=== PATIENT | male | born 1985 | race Caucasian/White ===

== ENCOUNTER 2019-04-17 22:51 | Emergency (ER) | payer OTHER ==
[~2019-04-17] VITALS: Ht 172.7 cm; Wt 74.8 kg
[2019-04-18 00:54] LABS: ABSOLUTE NEUTROPHILS 5.4 thou/uL (1.4-8.2); BASOPHILS 0.9 % (0.0-2.0); EOSINOPHILS 2.3 % (0.0-3.0); HEMATOCRIT 45.1 % (42.0-52.0); HEMOGLOBIN 15.1 gm/dL (14.0-18.0); LYMPHOCYTES 23.4 % (24.0-44.0); MCH 29.7 pg (26.0-34.0); MCHC 33.6 g/dL (28.0-37.0); MCV 88.5 fL (80.0-100.0); MONOCYTES 7.9 % (1.0-8.0); PLATELET COUNT 189 thou/uL (150-400); POLYS 65.5 % (36.0-66.0); RDW 14.3 % (10.5-14.5); WBC 8.3 thou/uL (4.0-11.0)
[2019-04-18 01:04] LABS: CALCIUM 9.1 mg/dL (8.5-10.1); CREATININE 0.8 mg/dL (0.7-1.3); POTASSIUM 3.8 mmol/L (3.5-5.1); URINE BILIRUBIN NEGATIVE (Negative); URINE BLOOD NEGATIVE (Negative); URINE CLARITY CLEAR; URINE COLOR YELLOW; URINE GLUCOSE-RANDOM* NEGATIVE (Negative); URINE KETONES NEGATIVE (Negative); URINE LEUKOCYTES-REFLEX NEGATIVE (Negative); URINE NITRITE-REFLEX NEGATIVE (Negative); URINE PROTEIN (DIPSTICK) NEGATIVE (Negative); URINE UROBILINOGEN 0.2 E.U./dl (0.2-1.0)
[2019-04-18 01:09] LABS: ALBUMIN 3.9 g/dL (3.4-5.0); TOTAL BILIRUBIN 0.9 mg/dL (<0.1-1.0); TOTAL PROTEIN 7.5 g/dL (6.4-8.2)
[2019-04-18] MEDS ORDERED: ULTRAM 50MG TAB50 MG PO (03:07)
[2019-04-18] MEDS ORDERED: IMODIUM A-D2 MG PO (03:07)
[2019-04-18] MEDS ORDERED: BENTYL 20 MG TA20 M1 PO (03:07)
[2019-04-18] MEDS ORDERED: ZOFRAN ODT4 MG PO (03:07)
[2019-04-18 03:20] VITALS: BP 116/77
== END 2019-04-18 03:20 | disposition home or self-care (01) ==
LOC: ER 22:51 → EDBD 22:51 → ER 04-18 03:20
PROVIDERS: Physician Assistant
DX: A08.4 Viral intestinal infection, unspecified (principal)